=== PATIENT | female | born 1955 | race Caucasian/White ===

== ENCOUNTER 2019-09-30 14:39 | Emergency (ER) | payer SELFPAY ==
[2019-09-30] MEDS ORDERED: ONDANSETRON 4 MG/2 ML VIAL IVP STA (15:07)
[2019-09-30] MEDS ORDERED: MORPHINE 2 MG/ML CARPUJECT IVP STA (15:07)
[2019-09-30 15:10] LABS: BASOPHILS # (AUTO) 0.1 10^3/uL (0.0-0.1); BASOPHILS % (AUTO) 0.6 %; EOSINOPHILS # (AUTO) 0.1 10^3/uL (0.0-0.7); EOSINOPHILS % (AUTO) 0.5 %; HGB - HEMOGLOBIN 12.5 g/dL (12.0-16.0); LYMPHOCYTES # (AUTO) 1.9 10^3/uL (1.5-3.5); MEAN CORPUSCULAR HGB CONC 32.3 g/dL (32.0-36.0); MEAN CORPUSCULAR VOLUME 89.8 fL (81.0-99.0); MEAN PLATELET VOLUME 9.6 fL (7.9-10.8); MONOCYTES # (AUTO) 0.7 10^3/uL (0.0-1.0); NEUTROPHILS # (AUTO) 8.2 10^3/uL (1.5-6.6); NEUTROPHILS % (AUTO) 75.1 %; PLT - PLATELET COUNT 328 10^3/uL (130-450); RED BLOOD COUNT 4.31 10^6/uL (4.20-5.40); RED CELL DISTRIBUTION WIDTH 14.9 % (12.0-15.0); WHITE BLOOD COUNT 10.9 x10^3/uL (4.8-10.8)
--- NOTE | 2019-09-30 15:11 | ED Physician Documentation ---
History of Present Illness - Stated complaint Stated Complaint: ABD PX/VOMITING - Chief complaint Chief Complaint: Abd Pain - History obtained from History obtained from: Patient - History of Present Illness Timing: Yesterday Pain level max: 7 Pain level now: 7 - Additonal information Additional information: 64-year-old female presents to the emergency department stating that she is having pain in the left lower quadrant and lower abdomen. Similar to past episodes of diverticulitis. She states she started vomiting today. No fevers that she is aware of. Has had loose bowel movements as well. No blood. Nothing makes it better or worse. No recent antibiotics. No recent travel. Review of Systems Constitutional: denies: Fever, Chills Cardiac: denies: Chest pain / pressure Respiratory: denies: Cough GI: reports: Nausea, Vomiting, Diarrhea Musculoskeletal: denies: Neck pain, Back pain Neurologic: denies: Headache PD PAST MEDICAL HISTORY - Past Medical History Past Medical History: Yes Endocrine/Autoimmune: Type 2 diabetes GI: Diverticulitis - Present Medications Home Medications: Ambulatory Orders Medication Instructions Recorded Confirmed Ciprofloxacin HCl [Cipro] 500 mg PO BID #20 tablet 09/30/19 Ondansetron Odt [Zofran] 4 mg TL Q6H PRN #10 tablet 09/30/19 Oxycodone HCl/Acetaminophen 1 - 2 each PO Q6H PRN #14 tablet 09/30/19 [Percocet 5-325 mg Tablet] metroNIDAZOLE [Flagyl] 500 mg PO TID #30 tablet 09/30/19 - Allergies Allergies/Adverse Reactions: Allergies Allergy/AdvReac Type Severity Reaction Status Date / Time hydrochlorothiazide Allergy Cramps Verified 09/30/19 14:43 triptorelin Allergy Anaphylaxis Verified 09/30/19 14:43 - Living Situation Living Situation: reports: With family Living Arrangement: reports: At home - Social History Does the pt drink ETOH?: Yes - Family History Family history: reports: Non contributory PD ED PE NORMAL - Vitals Vital signs reviewed: Yes - General General: Alert and oriented X 3, No acute distress, Other (Obese female) - HEENT HEENT: PERRL, Moist mucous membranes - Neck Neck: Supple, no meningeal sign - Cardiac Cardiac: RRR, Strong equal pulses - Respiratory Respiratory: No respiratory distress, Clear bilaterally - Abdomen Abdomen: Soft, Non distended, Other (Tender to palpation left lower quadrant and suprapubic. No peritoneal signs.) - Back Back: No CVA TTP - Derm Derm: Warm and dry - Extremities Extremities: No edema - Neuro Neuro: Alert and oriented X 3 - Psych Psych: Normal mood, Normal affect Results - Vitals Vitals: Vital Signs - 24 hr 09/30/19 09/30/19 09/30/19 14:43 16:39 18:55 Temperature 36.5 C 36.8 C Heart Rate 52 L 52 L 50 L Respiratory 16 20 20 Rate Blood Pressure 175/58 H 169/58 H 136/99 H O2 Saturation 98 96 96 Oxygen O2 Source Room air - Labs Labs: Laboratory Tests 09/30/19 09/30/19 09/30/19 15:00 15:00 16:50 WBC 10.9 H RBC 4.31 Hgb 12.5 Hct 38.7 MCV 89.8 MCH 29.0 MCHC 32.3 RDW 14.9 Plt Count 328 MPV 9.6 Neut # (Auto) 8.2 H Lymph # (Auto) 1.9 Fountain # (Auto) 0.7 Eos # (Auto) 0.1 Baso # (Auto) 0.1 Absolute Nucleated RBC 0.00 Nucleated RBC % 0.0 Sodium 141 Potassium 4.2 Chloride 103 Carbon Dioxide 27 Anion Gap 11.0 BUN 18 Creatinine 1.2 H Estimated GFR (MDRD) 45 L Glucose 222 H POC Whole Bld Glucose Lactic Acid Calcium 9.0 Total Bilirubin 1.1 H AST 16 ALT 13 Alkaline Phosphatase 69 Total Protein 7.6 Albumin 4.1 Globulin 3.5 Albumin/Globulin Ratio 1.2 Lipase 30 Urine Color YELLOW Urine Clarity HAZY Urine pH 6.0 Ur Specific Twilight 1.015 Urine Protein TRACE Urine Glucose (UA) NEGATIVE Urine Ketones TRACE Urine Occult Blood MODERATE H Urine Nitrite NEGATIVE Urine Bilirubin NEGATIVE Urine Urobilinogen 0.2 (NORMAL) Ur Leukocyte Esterase SMALL H Urine RBC 11-25 H Urine WBC 11-25 H Urine WBC Clumps PRESENT Ur Squamous Epith Cells FEW Squamous Urine Bacteria Many H Ur Microscopic Review INDICATED Urine Culture Comments INDICATED 09/30/19 09/30/19 17:36 18:37 WBC RBC Hgb Hct MCV MCH MCHC RDW Plt Count MPV Neut # (Auto) Lymph # (Auto) Fountain # (Auto) Eos # (Auto) Baso # (Auto) Absolute Nucleated RBC Nucleated RBC % Sodium Potassium Chloride Carbon Dioxide Anion Gap BUN Creatinine Estimated GFR (MDRD) Glucose POC Whole Bld Glucose 192 H Lactic Acid 1.3 Calcium Total Bilirubin AST ALT Alkaline Phosphatase Total Protein Albumin Globulin Albumin/Globulin Ratio Lipase Urine Color Urine Clarity Urine pH Ur Specific Twilight Urine Protein Urine Glucose (UA) Urine Ketones Urine Occult Blood Urine Nitrite Urine Bilirubin Urine Urobilinogen Ur Leukocyte Esterase Urine RBC Urine WBC Urine WBC Clumps Ur Squamous Epith Cells Urine Bacteria Ur Microscopic Review Urine Culture Comments - Rads (name of study) CT abdomen pelvis Radiology: Prelim report reviewed, EMP read contemporaneously, See rad report (1. 3 mm left mid ureteral calculus with mild upstream hydroureteronephrosis. 2. Mild acute proximal sigmoid colon diverticulitis. No evidence for perforation. ) PD MEDICAL DECISION MAKING - ED course Complexity details: reviewed results, re-evaluated patient, considered differential, d/w patient, d/w design sales consultant ED course: 64-year-old female with diverticulitis as well hydronephrosis, mid ureteral kidney stone and UTI. No fever. Given Cipro and Flagyl. Discussed the case with Dr. Dudley, Urology who recommends oral antibiotics and can follow-up with her PCP as an outpatient. If she develops fever, worsening pain, vomiting, she should go to the [facility] emergency department for evaluation with urology. Patient is comfortable with this plan. She is well-appearing, nontoxic. No evidence of sepsis. Patient counseled regarding signs and symptoms for which I believe and urgent re-evaluation would be necessary. Patient with good understanding of and agreement to plan and is comfortable going home at this time This document was made in part using voice recognition software. While efforts are made to proofread this document, sound alike and grammatical errors may occur. Departure - Departure Disposition: Home, Self Care Clinical Impression: Ureteral stone, Diverticulitis UTI (urinary tract infection) Qualifiers: Urinary tract infection type: site unspecified Hematuria presence: with hematuria Qualified Code(s): N39.0 - Urinary tract infection, site not specified Condition: Good Instructions: ED Diverticulitis, ED UTI Cystitis Female, ED Stone Renal W Colic Follow-Up: your,doctor in 3 days [Other] Prescriptions: Ciprofloxacin HCl [Cipro] 500 mg PO BID #20 tablet metroNIDAZOLE [Flagyl] 500 mg PO TID #30 tablet Ondansetron Odt [Zofran] 4 mg TL Q6H PRN #10 tablet PRN Reason: Nausea / Vomiting Oxycodone HCl/Acetaminophen [Percocet 5-325 mg Tablet] 1 - 2 each PO Q6H PRN #14 tablet PRN Reason: pain Comments: Take all antibiotics until gone. Return if you worsen. If you have uncontrolled pain and/or fever, you should go to the [facility] emergency department see you can be seen by urology. I spoke with Dr. Dudley from urology [facility]. Do not drink alcohol or drive while on narcotic pain medicine. Note that many narcotic pain relievers also contain tylenol/acetaminophen. Please ensure that your total dose of acetaminophen from all sources does not exceed 3 grams (3000mg) per day. You may constipated on this medication, take a stool softener such as "Colace" twice a day while you are on it. Also recommend a [id number] laxative such as senna or MiraLAX any day that you do not have a bowel movement. If you received narcotic pain medication in the emergency department, do not drive or operate machinery for the next 24 hours. Discharge Date/Time: 09/30/19 19:12
[2019-09-30 15:21] LABS: ALBUMIN 4.1 g/dL (3.2-5.5); ALBUMIN/GLOBULIN RATIO 1.2 (1.0-2.2); BILIRUBIN,TOTAL 1.1 mg/dL (0.2-1.0); CREATININE 1.2 mg/dL (0.4-1.0); TOTAL PROTEIN 7.6 g/dL (6.7-8.2)
[2019-09-30] MEDS ORDERED: IOVERSOL 320 100 ML VIAL IVP ONE ×2 (15:41→16:36)
[2019-09-30] MEDS ORDERED: PROMETHAZINE INJ 25 MG in SODIUM CHLORIDE 0.9% 50 ML IV STA (16:06)
[2019-09-30] MEDS ORDERED: KETOROLAC 30 MG/ML VIAL IVP STA (16:45)
[2019-09-30 17:02] LABS: BILIRUBIN,URINE NEGATIVE (NEGATIVE); GLUCOSE, URINE (UA) NEGATIVE (NEGATIVE); KETONES,URINE (UA) TRACE mg/dL (NEGATIVE); LEUKOCYTE ESTERASE, URINE SMALL (NEGATIVE); NITRITE,URINE NEGATIVE (NEGATIVE); OCCULT BLOOD,URINE MODERATE (NEGATIVE); PROTEIN,URINE TRACE mg/dL (NEGATIVE); UROBILINOGEN,URINE 0.2 (NORMAL) E.U./dL (NORMAL)
--- NOTE | 2019-09-30 17:02 | CT Report ---
Reason: LLQ abd pain, vomiting Procedure Date: 09/30/2019 Accession Number: [id number] / [id number] Procedure: CT - Abdomen/Pelvis W CPT Code: Final Report FULL RESULT: EXAM: CT ABDOMEN AND PELVIS EXAM DATE: 09/30/2019 04:29 PM. CLINICAL HISTORY: Left lower quadrant abdominal pain. Vomiting. COMPARISONS: None. TECHNIQUE: Routine helical CT imaging was performed through the abdomen and pelvis. IV contrast: 100 mL Isovue-370. Enteric contrast: None. Reconstructions: Coronal and sagittal. In accordance with CT protocol optimization, one or more of the following dose reduction techniques were utilized for this exam: automated exposure control, adjustment of mA and/or KV based on patient size, or use of iterative reconstructive technique. FINDINGS: Lung Bases: Minimal dependent atelectasis. Liver: Mild diffuse low attenuation of the hepatic parenchyma with respect to the spleen, suggesting steatosis. No focal hepatic lesion. Gallbladder/Bile Ducts: Unremarkable. No visualized stones or biliary ductal dilatation. Spleen: Normal size. Two tiny calcified granulomata. Pancreas: Normal. Adrenal Glands: Normal. Kidneys and Ureters: Mild left hydronephrosis extending to a 3 x 3 x 3 mm mid ureteral calculus (3/53, 5/36) with associated perinephric and proximal periureteric fat stranding. No right renal or ureteral calculi, hydronephrosis, or hydroureter. Peritoneal Cavity/Bowel: Descending and sigmoid colon diverticulosis. Focal thickening of the proximal sigmoid colon wall with adjacent mesenteric fat stranding likely representing acute diverticulitis. No evidence for bowel obstruction. The appendix is normal. No free fluid, pneumoperitoneum, or adenopathy. No rim-enhancing focal fluid collection to suggest abscess. Pelvic Organs: Tiny 3 mm calcification in the inferior bladder wall (3/88, 5/41, 6/45). The uterus and ovaries are within normal limits. Vasculature: Mild atherosclerotic calcifications within the aorta and iliac arteries. Bones: 6 [id number] lumbar vertebral elements, a normal variant. L3 vertebral body hemangioma. Mild left convex curvature centered at L3. Multilevel degenerative disk disease and facet arthropathy, most pronounced and moderate in the mid/lower lumbar spine. 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 No acute bony abnormality. Other: Wide rectus diastases. IMPRESSION: 1. 3 mm left mid ureteral calculus with mild upstream hydroureteronephrosis. 2. Mild acute proximal sigmoid colon diverticulitis. No evidence for perforation. [facility]
[2019-09-30 17:03] LABS: CLARITY,URINE HAZY (CLEAR)
[2019-09-30 17:08] LABS: WBC CLUMPS,URINE PRESENT
[2019-09-30 17:09] LABS: BACTERIA,URINE Many /HPF (None Seen); SQUAMOUS EPITHELIAL CELL,UR FEW Squamous (<= Few)
[2019-09-30] MEDS ORDERED: CIPROFLOXACIN 400 MG/200 ML 400 MG/200 ML BAG IV STA (17:16)
[2019-09-30] MEDS ORDERED: metroNIDAZOLE 500 MG/100 ML 500 MG/100 ML BAG IV ONE (17:16)
[2019-09-30] MEDS ORDERED: ONDANSETRON ODT 4 MG Prepack 2 TL STA (18:53)
[2019-09-30 18:56] VITALS: BP 136/99
== END 2019-09-30 19:12 | disposition home or self-care (01) ==
LOC: ED 14:39
DX: N13.2 Hydronephrosis with renal and ureteral calculous obstruction (principal); K57.32 Diverticulitis of large intestine without perforation or abscess without bleeding; N39.0 Urinary tract infection, site not specified; R31.9 Hematuria, unspecified; E11.9 Type 2 diabetes mellitus without complications
CPT/HCPCS: 36415; 74177; 80053; 81001; 83605; 83690; 85025; 87040; 87086; 96365; 96367; 96368; 96375; 99284; 99285; J7040; Q9967; 81003